=== PATIENT | female | born 1990 | race Hispanic/Latino ===

== ENCOUNTER 2017-05-06 14:52 | Inpatient (IN) | payer OTHER ==
[~2017-05-06] VITALS: Ht 162.6 cm; Wt 93.0 kg
[~2017-05-06 14:52] MED LIST: IRON325 M1 PO; LORTAB 7.5 PO; MEDDOSEPAK PO; PRENATA8 PO
[2017-05-07] VITALS (11 sets, daily range): BP systolic 92–120; BP diastolic 42–73
[2017-05-07 05:53] LABS: HEMATOCRIT 36.7 % (37.0-47.0); HEMOGLOBIN 12.8 g/dl (12.0-16.0); IMMATURE GRANULOCYTES 0.8 % (0.0-1.0); MEAN CELL VOLUME 97.3 fL CALC (80.0-100.0); MEAN CORPUSCULAR HGB CONC 34.9 g/L CALC (32.0-36.0); NEUT# 6.9 thou/uL (2.00-7.15); RED BLOOD COUNT 3.77 mill/uL (4.20-5.60); RED CELL DISTRI WIDTH 14.6 % (11.5-15.5)
[2017-05-07 06:00] LABS: ALBUMIN 3.5 g/dL (3.2-5.0); ALKALINE PHOSPHATASE 148 u/l (38-126); ANION GAP 13 (6-22 (CALC)); BILIRUBIN, TOTAL 0.7 mg/dL (0.0-1.4); BUN 10 mg/dL (7-17); BUN/CREATININE RATIO 25 (12-20 (CALC)); CALCIUM 9.2 mg/dL (8.4-10.2); CARBON DIOXIDE 20 mmol/l (22-30); CHLORIDE 110 mmol/l (95-108); CREATININE 0.4 mg/dL (0.5-1.0); GFR > 60 ML/MIN (>=60 (CALC)); GFR FOR AFR.AMER. > 60 ML/MIN (>=60 (CALC)); GLUCOSE 71 mg/dL (65-105); POTASSIUM 4.1 mmol/l (3.5-5.1); SGOT/AST 20 u/l (14-36); SGPT/ALT 31 u/l (9-52); SODIUM 139 mmol/l (137-146); TOTAL PROTEIN 6.3 g/dL (6.3-8.2)
[2017-05-08 01:32] VITALS: BP 100/52
[2017-05-08 05:45] VITALS: BP 105/55
[2017-05-08 06:07] LABS: HEMATOCRIT 33.1 % (37.0-47.0); HEMOGLOBIN 11.1 g/dl (12.0-16.0); IMMATURE GRANULOCYTES 0.4 % (0.0-1.0); MEAN CELL VOLUME 100.9 fL CALC (80.0-100.0); MEAN CORPUSCULAR HGB 33.8 pG CALC (26.0-32.0); MEAN CORPUSCULAR HGB CONC 33.5 g/L CALC (32.0-36.0); NEUT# 8.78 thou/uL (2.00-7.15); RED BLOOD COUNT 3.28 mill/uL (4.20-5.60); RED CELL DISTRI WIDTH 15.1 % (11.5-15.5)
[2017-05-08 12:55] VITALS: BP 104/47
[2017-05-08 21:00] VITALS: BP 110/60
[2017-05-09 05:55] VITALS: BP 129/62
[2017-05-09] MEDS ORDERED: IBUPROFEN600 MG PO (12:19)
[2017-05-09] MEDS ORDERED: LORTAB 7.57.5 MG PO (12:20)
[2017-05-09 13:00] VITALS: BP 119/54
== END 2017-05-09 15:30 | disposition home or self-care (01) | DRG 766 ==
LOC: OB 05-07 04:53
PROVIDERS: ADMIT Obstetrics & Gynecology; ATTEND Obstetrics & Gynecology
PROC: 10D00Z1 Extraction of Products of Conception, Low, Open Approach (ICD-10-PCS; principal; 2017-05-07)
DX: O34.211 Maternal care for low transverse scar from previous cesarean delivery (principal); J45.909 Unspecified asthma, uncomplicated; O99.52 Diseases of the respiratory system complicating childbirth; N73.6 Female pelvic peritoneal adhesions (postinfective); O99.89 Other specified diseases and conditions complicating pregnancy, childbirth and the puerperium; N85.8 Other specified noninflammatory disorders of uterus; O73.0 Retained placenta without hemorrhage; Z3A.40 40 weeks gestation of pregnancy; Z37.0 Single live birth
CPT/HCPCS: J2270

== ENCOUNTER 2017-05-26 17:21 | Emergency (ER) | payer OTHER ==
[~2017-05-26] VITALS: Ht 162.6 cm; Wt 89.9 kg
[~2017-05-26 17:21] MED LIST changes: +IBUPROFEN600 MG PO; +LORTAB 7.57.5 MG PO
[2017-05-26] MEDS ORDERED: CLINDAMYCIN300 M1 PO (17:40)
[2017-05-26] MEDS ORDERED: ULTRAM50 M1 PO (18:20)
[2017-05-26] MEDS ORDERED: BACTRIM DS1 TAB PO (18:20)
[2017-05-26 18:36] VITALS: BP 130/79
== END 2017-05-26 18:40 | disposition home or self-care (01) | DRG 776 ==
LOC: ED 17:21
PROC: 0H97XZX Drainage of Abdomen Skin, External Approach, Diagnostic (ICD-10-PCS; principal; 2017-05-26)
DX: O86.0 Infection of obstetric surgical wound (principal); B96.89 Other specified bacterial agents as the cause of diseases classified elsewhere

== ENCOUNTER 2017-05-31 17:30 | Inpatient (IN) | payer OTHER ==
[~2017-05-31] VITALS: Ht 162.6 cm; Wt 85.7 kg
[~2017-05-31 17:30] MED LIST changes: +BACTRIM DS1 TAB PO; +CLINDAMYCIN300 M1 PO; +ULTRAM50 M1 PO
--- NOTE | 2017-05-31 17:40 | NUR ---
PT.ON FLOOR AMBULATORY, APPEARS TO BE IN GOOD CONDITION. PT.IS BEING SETTLED INTO ROOM AT THIS TIME, ORIENTED TO ROOM, CALL SYSTEM, LIGHTS, TV AND POC. PT.IS BEING SERVED SUPPER TRAY AT THIS TIME
[2017-05-31 17:45] VITALS: BP 112/54
[2017-05-31 18:56] LABS: HEMATOCRIT 40.2 % (37.0-47.0); HEMOGLOBIN 13.4 g/dl (12.0-16.0); IMMATURE GRANULOCYTES 0.4 % (0.0-1.0); MEAN CELL VOLUME 101.3 fL CALC (80.0-100.0); MEAN CORPUSCULAR HGB 33.8 pG CALC (26.0-32.0); MEAN CORPUSCULAR HGB CONC 33.3 g/L CALC (32.0-36.0); NEUT# 4.61 thou/uL (2.00-7.15); RED BLOOD COUNT 3.97 mill/uL (4.20-5.60)
--- NOTE | 2017-05-31 19:00 | NUR ---
RECEIVED CHANGE OF SHIFT REPORT FROM SY MARSHALL. PATIENT LYING IN BED AND APPEARS NOT TO BE IN ANY APPARENT ACUTE DISTRESS NOTED. WILL CONTINUE TO MONITOR.
[2017-05-31 19:08] LABS: ALBUMIN 4.3 g/dL (3.2-5.0); ALKALINE PHOSPHATASE 63 u/l (38-126); ANION GAP 17 (6-22 (CALC)); BILIRUBIN, TOTAL 0.5 mg/dL (0.0-1.4); BUN 13 mg/dL (7-17); BUN/CREATININE RATIO 19 (12-20 (CALC)); CALCIUM 9.2 mg/dL (8.4-10.2); CARBON DIOXIDE 23 mmol/l (22-30); CHLORIDE 106 mmol/l (95-108); CREATININE 0.7 mg/dL (0.5-1.0); GFR > 60 ML/MIN (>=60 (CALC)); GFR FOR AFR.AMER. > 60 ML/MIN (>=60 (CALC)); GLUCOSE 96 mg/dL (65-105); POTASSIUM 4.3 mmol/l (3.5-5.1); SGOT/AST 36 u/l (14-36); SGPT/ALT 57 u/l (9-52); SODIUM 142 mmol/l (137-146); TOTAL PROTEIN 7.1 g/dL (6.3-8.2)
[2017-05-31 19:55] VITALS: BP 89/56
--- NOTE | 2017-06-01 | NUR ---
PATIENT RESTING QUIETLY IN BED WITH EYES CLOSED. NO APPARENT ACUTE DISTRESS NOTED.
[2017-06-01 00:54] LABS: URINE BILIRUBIN - DIPSTICK NEGATIVE (NEGATIVE); URINE BLOOD DIPSTICK SMALL (NEGATIVE); URINE CLARITY CLEAR; URINE COLOR YELLOW; URINE GLUCOSE - DIPSTICK NEGATIVE (NEGATIVE); URINE KETONE NEGATIVE (NEGATIVE); URINE NITRITE - DIPSTICK NEGATIVE (Negative); URINE PROTEIN - DIPSTICK NEGATIVE (NEG-TRACE); URINE UROBILINOGEN - DIPSTICK 0.2 E.U./dL (0.2)
[2017-06-01 01:23] LABS: URINE LEUK ESTERASE SMALL (NEGATIVE)
[2017-06-01 02:40] LABS: URINE BACTERIA RARE hpf
--- NOTE | 2017-06-01 04:00 | NUR ---
NO APPARENT ACUTE CHANGES NOTED IN PATIENT'S CONDITION.
[2017-06-01 05:00] VITALS: BP 88/59
--- NOTE | 2017-06-01 07:00 | NUR ---
REPORT RECIEVED FROM SY GOLDBERG. PT APPEARS TO BE SLEEPING ON ENTRY. NO SIGNS OF DISTRESS. RESP EVEN AND UNLABORED. SAFETY PRECAUTIONS IN PLACE. CALL LIGHT WITHIN REACH. WILL CONTINUE TO MONITOR HOURLY.
[2017-06-01 08:28] VITALS: BP 96/49
--- NOTE | 2017-06-01 13:15 | NUR ---
Drug Selected: Vancomycin Age: 26 years Weight: 86 kg Height: 64 in Gender: Female SCR: 0.7 mg/dl Calculated Values: Dosing weight: 67.22 kg IBW: 54.70 kg CRCL (ml/min): 105.2 Final Report: Give Vancomycin 1000 mg q8 hrs NEXT TROUGH WILL BE 06/02/17 @ 0730AM
--- NOTE | 2017-06-01 15:20 | NUR ---
PT RESTING IN SUPINE POSITON IN BED WATCHING TV WITH FAMILY AT BEDSIDE. PT IV SIGHT APPEARS HEALTHY. NO COMPLAINTS OF PAIN FROM PT AT THE MOMENT. CALL LIGHT WITHIN REACH.
[2017-06-01 16:15] VITALS: BP 119/64
--- NOTE | 2017-06-01 18:43 | NUR ---
PT SITTING AT SIDE OF BED. NO COMPLAINTS OF PAIN AT THE MOMENT. IV SIGHT APPEARS HEALTHY. SAFETY PRECAUTIONS REINFORCED. CALL LIGHT WITHIN REACH.
[2017-06-01 19:30] VITALS: BP 95/58
--- NOTE | 2017-06-01 20:03 | NUR ---
DR DOUGLAS IN PT ROOM EXPLAINING PLAN OF CARE, RECOMMENDED TO REMOVE GAUZE AND TEGADERM FROM INCISION SITE AND COVER WITH ABD PAD INSTEAD, WILL CONTINUE TO REASSESS. NO DISTRESS NOTED ON PT, DENIES PAIN AT THIS TIME, CALL HEALY AT REACH.
--- NOTE | 2017-06-01 21:10 | NUR ---
CHANGED DRESSING WITH X2 4X4 GAUZE AND ABD PAD ON TOP SECURED WITH UNDERWEAR, PT STATES "TAPE IRRITATES MY SKIN," AND DR. DOUGLAS RECOMMENDED NOT TO PUT TAPE ON SKIN. MEDICATED FOR PAIN WITH LORTAB FOR ABD PAIN, WILL CONTINUE TO REASSESS, AT BEDSIDE, VSS, WILL CONTINUE TO MONITOR. PT IS TALKACTIVE, NO FACIAL GRIMACE OR GUARDING NOTED.
--- NOTE | 2017-06-01 23:24 | NUR ---
LORENAREN INFUSING AT THIS TIME, PT TALKING ON THE PHONE, AND WATCHING TV, AT BEDSIDE, DENIES NEEDS, ABD DRESSING CDI AT THIS TIME, DENIES PAIN, WILL CONTINUE TO REASSESS, CALL HEALY AT REACH.
--- NOTE | 2017-06-01 23:59 | NUR ---
BARRY PASTRANA, EDUCATED PT ABOUT SIDE EFFECTS, INSTRUCETED TO CALL IF ANY PAIN/DISCOMFORT OR REDNESS, VOICES UNDERSTANDING, IV IS INTACT, AT BEDSIDE.
--- NOTE | 2017-06-02 03:45 | NUR ---
PT DENIES PAIN, SOME BACON COLOR DRAINAGED NOTED, CHANGED DRESSING, PLACED A X2 4X4 GAUZE AND A ABD PAD, PT REFUSES TAPE ON SKIN, STATES "IT IRRITATES MY SKIN." PT IS MAINTAINING DRESSING IN PLACE WITH OWN UNDERWEAR. WILL CONTINUE TO REASSESS, IN ROOM. IV FLUIDS INFUSING WITHOUT DIFFICULTY, IV SITE IS FREE OF REDNESS OR EDEMA, DENIES PAIN, RESP ARE EVEN AND UNLABORED, CALL HEALY IS WITHIN REACH.
[2017-06-02 05:05] VITALS: BP 89/63
--- NOTE | 2017-06-02 07:00 | NUR ---
REPORT RECIEVED FROM SY HERNANDEZ. PT APPEARS TO BE ASLEEP. FAMILY SLEEPING AT BEDSIDE. NO SIGNS OF DISTRESS. RESP EVEN AND UNLABORED. SAFETY PRECAUTIONS IN PLACE. CALL LIGHT WITHIN REACH.
[2017-06-02 08:20] VITALS: BP 114/64
--- NOTE | 2017-06-02 12:00 | NUR ---
PT RESTING IN BED IN SUPINE POSITON. ABD DRESSING CDI. IV SIGHT APPEARS HEALTHY. NO COMPLAINTS OF PAIN AT THIS TIME. CALL LIGHT WITHIN REACH.
--- NOTE | 2017-06-02 12:40 | NUR ---
VANCOMYCIN TROUGH RESULT TROUGH LEVEL ON 06/02/17 IS 12 CONTINUE VANCOMYCIN 1GRAM Q8H NEXT TROUGH WILL BE 06/04/17 @0730 AM
[2017-06-02 16:34] VITALS: BP 98/52
[2017-06-02 18:00] VITALS: BP 110/65
--- NOTE | 2017-06-02 19:00 | NUR ---
RECEIVED CHANGE OF SHIFT REPORT FROM NATAN RON. PATIENT SITTING UP IN CHAIR AND REPORTS UNRELIEVED PAIN. NO APPARENT ACUTE DISTRESS NOTED. WILL CONTINUE TO MONITOR.
--- NOTE | 2017-06-02 19:06 | NUR ---
REPORT GIVEN TO SY GOLDBERG. PT SHOWS NO SIGNS OF DISTRESS, STABLE AT THIS TIME. CALL LIGHT WITHIN REACH.
--- NOTE | 2017-06-03 | NUR ---
PATIENT RESTING QUIETLY AT THIS TIME. NO APPARENT ACUTE DISTRESS NOTED.
[2017-06-03 00:06] VITALS: BP 88/50
--- NOTE | 2017-06-03 04:00 | NUR ---
NO APPARENT ACUTE CHANGES NOTED IN PATIENT'S CONDITION.
[2017-06-03 08:20] VITALS: BP 116/60
--- NOTE | 2017-06-03 08:20 | NUR ---
ASSESSMENT IS COMPLETED: IV SITE IS FREE FROM REDNESS OR EDEMA. CONTINUE TO OBSERVE AND MONITOR.
--- NOTE | 2017-06-03 10:15 | NUR ---
PT WENT TO CT SCAN AND RETURNED AT 1119
--- NOTE | 2017-06-03 11:05 | NUR ---
PT'S IV SITE WAS SORE WHEN BEING FLUSHED. NEW IV SITE OBTAINED IN WITH #22 X2 PT TOLERATED WELL.
--- NOTE | 2017-06-03 12:05 | NUR ---
PT IS AMBULATING IN THE ROOM. WITH SPOUSE AND IN THE TAYLOR. IV SITE WAS CHANGED IN CT SCAN. TOOK 2 ATTEMPTS. #22 IN RH. CONTINUE TO OBSERVVE AND MONITOR. FAMILY IN THE ROOM. DR. DOUGLAS CAME BACK TO SEE PT.
--- NOTE | 2017-06-03 12:19 | NUR ---
SPOKE WITH DR. DOUGLAS RE: BLOOD CULTURES , NOT BEING OBTAINED. STATED " TOO LATE NOW PT HAS BEEN ON TOO MANY ABTS.
[2017-06-03 16:00] VITALS: BP 113/60
--- NOTE | 2017-06-03 16:05 | NUR ---
PT IS SITTING IN THE CHAIR. IV SITE IS FREE FROM REDNESS OR EDEMA CONTINUE TO OSBERE AND MONITOR.
[2017-06-03 18:00] VITALS: BP 119/59
--- NOTE | 2017-06-03 19:30 | NUR ---
PATIENT UP AND ABOUT IN THE ROOM. PATIENT IS AWAKE ALERT AND ORIENTED WITH NO COMPLAINTS AT THIS TIME. FAMILY AT BEDSIDE VISITING. PATIENT WITH IV SITE TO RIGHT HAND-SITE APPEARS HEALTHY AT THIS TIME WITH LR INFUSING AT 100CC/HR. PATIENT STATES THAT SHE DID HAVE BM'S TDAY. DENIES ANY DIFFICULTY WITH URINATION. ABD DRESS IS CDI AT THIS TIME. SAFETY PRECAUTION REINFORCED. CALL LIGHT IN REACH. WILL CONT TO MONITOR.
--- NOTE | 2017-06-03 23:00 | NUR ---
PATIENT SHOWERED AND GAUGE DRESSING WAS CHANGED. SMALL AMT OF BEIGE/GREENISH COLORED DRAINAGE NOTED ON OLD DRESSINGS. INCISION LINE IS INTACT WITH SMALL OPEN AREA WITH DRAINAGE-SURROUNDING AREA IS HARD TO TOUCH. 4X4 AND ABD PAD PLACED IN UNDERGARMENTS. IV ANTIBIOTICS GIVEN ORDRED. INSTRUCTED NPO AFTER MIDNIGHT FOR OR IN AM FOR I&D OF WOUND. VERBALIZES UNDERSTANDING. AT BEDSIDE AND WILL BE STAYING THE NIGHT. COT PROVIDED. CALL LIGHT IN REACH. WILL CONT TO MONITOR.
[2017-06-04] VITALS (12 sets, daily range): BP systolic 83–112; BP diastolic 40–70
--- NOTE | 2017-06-04 04:00 | NUR ---
APPEARS SLEEPING AT THIS TIME WITH IVF PATENT AND INFUSING RIGHT HAND AT 100CC/HR. REMAINS NPO FOR OR THIS AM. SLEEPING AT BEDSIDE ON COT PROVIDED. CALL LIGHT IN REACH. WILL CONT TO MONITOR.
[2017-06-04 05:04] LABS: HEMATOCRIT 37.4 % (37.0-47.0); HEMOGLOBIN 12.3 g/dl (12.0-16.0); IMMATURE GRANULOCYTES 0.4 % (0.0-1.0); MEAN CELL VOLUME 101.1 fL CALC (80.0-100.0); MEAN CORPUSCULAR HGB 33.2 pG CALC (26.0-32.0); MEAN CORPUSCULAR HGB CONC 32.9 g/L CALC (32.0-36.0); NEUT# 2.67 thou/uL (2.00-7.15); RED BLOOD COUNT 3.7 mill/uL (4.20-5.60); RED CELL DISTRI WIDTH 12.5 % (11.5-15.5)
[2017-06-04 05:15] LABS: ANION GAP 13 (6-22 (CALC)); BUN 12 mg/dL (7-17); BUN/CREATININE RATIO 22 (12-20 (CALC)); CALCIUM 9.2 mg/dL (8.4-10.2); CARBON DIOXIDE 26 mmol/l (22-30); CHLORIDE 106 mmol/l (95-108); CREATININE 0.6 mg/dL (0.5-1.0); GFR > 60 ML/MIN (>=60 (CALC)); GFR FOR AFR.AMER. > 60 ML/MIN (>=60 (CALC)); GLUCOSE 82 mg/dL (65-105); POTASSIUM 4.6 mmol/l (3.5-5.1); SODIUM 142 mmol/l (137-146)
--- NOTE | 2017-06-04 07:40 | NUR ---
ASSESSMENT IS COMPLETED: IV SITE IS FREE FROM REDNESS OR EDEMA. NO DISTRESS NOTED. WAITING ON OR TEAM. FAMILY IN THE ROOM. CONTINUE TO OSBERVE AND MONITOR.
--- NOTE | 2017-06-04 08:55 | NUR ---
PT WAS GIVEN A SPONGE AND BETADINE TO CLEAN THE AREA . TOLERATED WELL. CONTINUE TO OBSERVE AND MONITOR.
--- NOTE | 2017-06-04 09:15 | NUR ---
PT TRANSPORTED TO OR VIA [facility] ACCOMPANIED BY STAFF
--- NOTE | 2017-06-04 10:00 | NUR ---
IV SITE CLEAR NO REDNESS OR EDEMA. GOING TO OR.
--- NOTE | 2017-06-04 10:27 | NUR ---
PT UNABLE TO HAVE 9AM MEDS DUE TO GOING TO OR
--- NOTE | 2017-06-04 13:00 | NUR ---
IV SITE WAS CHANGED IN OR TO LFA WITH #20 CONTINUE TO OBSERVE AND MONITOR.
--- NOTE | 2017-06-04 13:15 | NUR ---
PT IS AMBULATING TO THE BED NO DISTRESS NOTED. IV SITE IS FREE FROM REDNESS OR EDEMA
--- NOTE | 2017-06-04 17:43 | NUR ---
PT HAS BEEN IN THE CHAIR AND THEN BACK IN BED VISITING WITH FAMILY. NO DISTRESS NOTED. IV SITE IS FREE FROM REDNESS OR EDEMA.
--- NOTE | 2017-06-04 19:40 | NUR ---
PATIENT SITTING ON THE SIDE OF THE BED-EMOTIONAL AND HAS BEEN CRYING. PATIENT ASKING FOR PAIN MEDS AND MEDICATED WITH DEMEROL 25MG IVP ORDERED FOR 8/10 PAIN SCALE. ABD DRESSING IS OFF-SOHEILA DRAIN IS INTACT AND DRAINING MODERATE AMT OF SEROSANGUINOUS DRAINAGE. POST-OP WOUND CLEANSED WITH SALINE ON GAUGE PAD. NEW DRESSING APPLIED USING 4X4 GAUZE PADS AND ABD. SECURED WITH PAPER TAPE. INSTRUCTED PATIENT TO LEAVE DRESSING IN PLACE AND TO CALL IF ANY DRAINAGE NOTED. VERBALIZED UNDERSTANDING. PATIENT WITH IV SITE TO LEFT AC-SITE APPEARS HEALTHY AT THIS TIME. FINISHING LR THAT IS HANGING. PATIENT STATES THAT SHEIS VOIDING WITHOUT ANY DIFFICULTY BUT IS HAVING LOOSE BM'S. REASSURANCE OFFERED-MISSING CHILDREN AT HOME. SAFETY PRECAUTIONS REINFORCED CALL LIGHT IN REACH. WILL CONT TO MONITOR.
--- NOTE | 2017-06-04 22:00 | NUR ---
PATIENT APPEARS MORE COMFORTABLE AT THIS TIME- AT BEDSIDE. ABD DRESSING IS CDI AT THIS TIME. CALL LIGHT IN REACH. WILL CONT TO MONITOR.
--- NOTE | 2017-06-05 00:08 | NUR ---
PATIENT RESTING IN BED AT THIS TIME WITH EYES CLOSED AND RESTING ON COT PROVIDED. IV VANCO HUNG ORDERED. ABD DRESSING REMAINS CDI AT THIS TIME. CALL LIGHT IN REACH. WILL CONT TO MONITOR.
--- NOTE | 2017-06-05 04:38 | NUR ---
SHAZIA BP 94/56. PATIENT APPEARS SLEEPY AT THIS TIME. ABD DRESSING IS CDI AT THIS TIME. CALL LIGHT IN REACH. WILL CONT TO MONITOR.
[2017-06-05 05:14] VITALS: BP 94/56
[2017-06-05 07:25] VITALS: BP 110/60
--- NOTE | 2017-06-05 07:28 | NUR ---
PATIENT RESTING IN BED HOLDING HER ABD, GRIMISING IN PAIN-STATES 7/10 ON PAIN SCALE. BP-110/60. MEDICATED WITH DEMEROL 25MG IVP FOR PAIN. CALL LIGHT IN REACH. WILL CONT TO MONITOR.
[2017-06-05] MEDS ORDERED: METRONIDAZOL500 MG PO (08:11)
[2017-06-05] MEDS ORDERED: CIPRO XR500 M2 PO (08:11)
[2017-06-05] MEDS ORDERED: LORTAB 7.57.5 MG PO (08:11)
[2017-06-05 08:15] VITALS: BP 97/64
--- NOTE | 2017-06-05 10:28 | NUR ---
IN TO SEE PT., CHANGED DRESSING TO INCISIONAL WOUND, SOHEILA DRAIN AT SITE DRAINING MODERATE AMOUNT OF SEROSANGUINEOUS FLUID, POC AND DISCHARGE DISCUSSED. BEFORE LEAVING THE ROOM, PT.ASKED IF SHE COULD HAVE SOMETHING MORE FOR PAIN/WILL PROVIDE.
--- NOTE | 2017-06-05 10:45 | NUR ---
PT.MEDICATED FOR PAIN, I WALKED INTO ROOM, PT.WAS SITTING IN RECLINER UPRIGHT IN TEARS W/ AT SIDE. PT.IS UPSET REGARDING PAIN, BEING AWAY FROM HER BABIES, HAVING TO MISS MORE WORK, HAVING TO BE ON ANTIBIOTICS, CONCERNED ABOUT WHAT PAIN MEDICATIONS SHE WILL GO HOME WITH, WE DISCUSSED POC MORE AT LENGTH AND MOSTLY I LISTENED TO HER CONCERNS. I WILL DISCUSS HER CONCERNS WITH MAURA ARCHULETA.
[2017-06-05] MEDS ORDERED: PERCOCET1 TA2 PO (12:20)
--- NOTE | 2017-06-05 12:35 | NUR ---
IV REMOVED/SITE APPEARS HEALTHY. PT.OFF THE FLOOR DISCHARGED IN GOOD CONDITION, VIA WC ACCOMPANIED BY AND STAFF
== END 2017-06-05 12:36 | disposition home or self-care (01) | DRG 769 ==
LOC: MS2 17:30
PROVIDERS: Nurse Practitioner Family; ADMIT Obstetrics & Gynecology; ATTEND Obstetrics & Gynecology
PROC: 0J9C0ZZ Drainage of Pelvic Region Subcutaneous Tissue and Fascia, Open Approach (ICD-10-PCS; principal; 2017-06-04)
DX: O86.0 Infection of obstetric surgical wound (principal); B95.2 Enterococcus as the cause of diseases classified elsewhere
CPT/HCPCS: Q9967

== ENCOUNTER 2017-06-19 05:00 | Emergency (ER) | payer OTHER ==
[~2017-06-19] VITALS: Ht 162.6 cm; Wt 90.8 kg
[~2017-06-19 05:00] MED LIST changes: +CIPRO XR500 M2 PO; +METRONIDAZOL500 MG PO; +PERCOCET1 TA2 PO
[2017-06-19 05:49] LABS: HEMATOCRIT 41.5 % (37.0-47.0); HEMOGLOBIN 14.2 g/dl (12.0-16.0); IMMATURE GRANULOCYTES 0.4 % (0.0-1.0); MEAN CELL VOLUME 98.8 fL CALC (80.0-100.0); MEAN CORPUSCULAR HGB 33.8 pG CALC (26.0-32.0); MEAN CORPUSCULAR HGB CONC 34.2 g/L CALC (32.0-36.0); NEUT# 7.65 thou/uL (2.00-7.15); RED BLOOD COUNT 4.2 mill/uL (4.20-5.60); RED CELL DISTRI WIDTH 12.4 % (11.5-15.5)
[2017-06-19 06:12] LABS: ALBUMIN 4.9 g/dL (3.2-5.0); ALKALINE PHOSPHATASE 67 u/l (38-126); AMYLASE 34 u/l (30-110); BILIRUBIN, TOTAL 0.8 mg/dL (0.0-1.4); BUN 23 mg/dL (7-17); BUN/CREATININE RATIO 32 (12-20 (CALC)); CALCIUM 9.9 mg/dL (8.4-10.2); CARBON DIOXIDE 25 mmol/l (22-30); CHLORIDE 105 mmol/l (95-108); CREATININE 0.7 mg/dL (0.5-1.0); GFR > 60 ML/MIN (>=60 (CALC)); GFR FOR AFR.AMER. > 60 ML/MIN (>=60 (CALC)); GLUCOSE 102 mg/dL (65-105); LIPASE 33 u/l (23-300); SGOT/AST 87 u/l (14-36); SGPT/ALT 100 u/l (9-52); SODIUM 145 mmol/l (137-146); TOTAL PROTEIN 7.5 g/dL (6.3-8.2)
[2017-06-19 06:14] LABS: ANION GAP 19 (6-22 (CALC)); POTASSIUM 4.1 mmol/l (3.5-5.1)
[2017-06-19] MEDS ORDERED: METRONIDAZOL500 MG PO (08:50)
[2017-06-19] MEDS ORDERED: CIPROFLOXACN500 MG PO (08:50)
[2017-06-19 08:56] VITALS: BP 95/59
== END 2017-06-19 09:07 | disposition home or self-care (01) | DRG 445 ==
LOC: ED 05:00
PROVIDERS: Emergency Medicine
DX: K80.20 Calculus of gallbladder without cholecystitis without obstruction (principal); L02.211 Cutaneous abscess of abdominal wall
CPT/HCPCS: Q9967

== ENCOUNTER 2017-07-20 21:18 | Emergency (ER) | payer OTHER ==
[~2017-07-20] VITALS: Ht 162.6 cm; Wt 85.4 kg
[~2017-07-20 21:18] MED LIST changes: +CIPROFLOXACN500 MG PO
[2017-07-20 22:13] LABS: HEMATOCRIT 41.3 % (37.0-47.0); HEMOGLOBIN 13.8 g/dl (12.0-16.0); IMMATURE GRANULOCYTES 0.4 % (0.0-1.0); MEAN CELL VOLUME 100.5 fL CALC (80.0-100.0); MEAN CORPUSCULAR HGB 33.6 pG CALC (26.0-32.0); MEAN CORPUSCULAR HGB CONC 33.4 g/L CALC (32.0-36.0); NEUT# 6.72 thou/uL (2.00-7.15); RED BLOOD COUNT 4.11 mill/uL (4.20-5.60); RED CELL DISTRI WIDTH 12.8 % (11.5-15.5)
[2017-07-20 22:30] LABS: ALBUMIN 4.8 g/dL (3.2-5.0); ALKALINE PHOSPHATASE 72 u/l (38-126); AMYLASE 41 u/l (30-110); ANION GAP 16 (6-22 (CALC)); BUN 17 mg/dL (7-17); BUN/CREATININE RATIO 22 (12-20 (CALC)); CALCIUM 9.3 mg/dL (8.4-10.2); CARBON DIOXIDE 24 mmol/l (22-30); CHLORIDE 107 mmol/l (95-108); CREATININE 0.8 mg/dL (0.5-1.0); GFR > 60 ML/MIN (>=60 (CALC)); GFR FOR AFR.AMER. > 60 ML/MIN (>=60 (CALC)); GLUCOSE 103 mg/dL (65-105); LIPASE 22 u/l (23-300); SGOT/AST 133 u/l (14-36); SGPT/ALT 145 u/l (9-52); SODIUM 144 mmol/l (137-146); TOTAL PROTEIN 7.8 g/dL (6.3-8.2)
[2017-07-20 22:38] LABS: URINE BILIRUBIN - DIPSTICK NEGATIVE (NEGATIVE); URINE BLOOD DIPSTICK LARGE (NEGATIVE); URINE COLOR YELLOW; URINE GLUCOSE - DIPSTICK NEGATIVE (NEGATIVE); URINE KETONE NEGATIVE (NEGATIVE); URINE NITRITE - DIPSTICK NEGATIVE (Negative); URINE PH 5.5 (4.5-8.0); URINE PROTEIN - DIPSTICK NEGATIVE (NEG-TRACE); URINE UROBILINOGEN - DIPSTICK 0.2 E.U./dL (0.2)
[2017-07-20 22:41] LABS: URINE CLARITY TURBID; URINE LEUK ESTERASE SMALL (NEGATIVE)
[2017-07-20 22:43] LABS: URINE RBC 25-50 RBC/hpf (0-5)
[2017-07-20 22:44] LABS: URINE SQUAMOUS EPITHELIAL CELL FEW EPI/hpf (0-FEW)
[2017-07-20] MEDS ORDERED: PERCOCET 5/325M1 TAB PO (22:54)
[2017-07-20] MEDS ORDERED: ZOFRAN4 MG/TAB PO (22:54)
[2017-07-20 23:18] VITALS: BP 112/61
== END 2017-07-20 23:18 | disposition home or self-care (01) | DRG 445 ==
LOC: ED 21:18
PROVIDERS: Emergency Medicine
DX: K80.50 Calculus of bile duct without cholangitis or cholecystitis without obstruction (principal); K62.5 Hemorrhage of anus and rectum

== ENCOUNTER → 2018-09-27 | Outpatient (REF) | payer OTHER ==
[~2018-09-27] MED LIST changes: +PERCOCET 5/325M1 TAB PO; +ZOFRAN4 MG/TAB PO
[2018-09-27 19:29] LABS: HEMATOCRIT 45.8 % (37.0-47.0); HEMOGLOBIN 15.4 g/dl (12.0-16.0); IMMATURE GRANULOCYTES 0.3 % (0.0-5.0); MEAN CELL VOLUME 100.7 fL CALC (80.0-100.0); MEAN CORPUSCULAR HGB 33.8 pG CALC (26.0-32.0); MEAN CORPUSCULAR HGB CONC 33.6 g/L CALC (32.0-36.0); NEUT# 4.77 thou/uL (2.00-7.15); RED BLOOD COUNT 4.55 mill/uL (4.20-5.60); RED CELL DISTRI WIDTH 12.3 % (11.5-15.5)
[2018-09-27 19:52] LABS: ALBUMIN 5.6 g/dL (3.2-5.0); ALKALINE PHOSPHATASE 89 u/l (38-126); ANION GAP 18 (6-22 (CALC)); BILIRUBIN, TOTAL 2.3 mg/dL (0.0-1.4); BUN 9 mg/dL (7-17); BUN/CREATININE RATIO 15 (12-20 (CALC)); CALCULATED LDLCHOLESTEROL 101 mg/dL (62-129 (CALC)); CARBON DIOXIDE 24 mmol/l (22-30); CHLORIDE 102 mmol/l (95-108); CHOLESTEROL HDL RATIO 2.6 (<4.4 (CALC)); CREATININE 0.6 mg/dL (0.5-1.0); GFR > 60 ML/MIN (>=60 (CALC)); GFR FOR AFR.AMER. > 60 ML/MIN (>=60 (CALC)); HDL CHOLESTEROL 70 mg/dL (>=40); POTASSIUM 4.1 mmol/l (3.5-5.1); SODIUM 140 mmol/l (137-146); TOTAL CHOLESTEROL 180 mg/dl (0-199); TOTAL PROTEIN 8.7 g/dL (6.3-8.2); TOTAL TRIGLYCERIDES 43 mg/dl (30-149); VLDL CHOLESTROL 9 mg/dl (2-29 (CALC))
[2018-09-27 20:10] LABS: SGOT/AST 30 u/l (14-36)
[2018-09-27 20:22] LABS: TSH, 3RD GENERATION 1.59 uIU/mL (0.47 - 4.68)
== END | disposition home or self-care (01) | DRG 951 ==
LOC: LAB 18:47
DX: Z01.419 Encounter for gynecological examination (general) (routine) without abnormal findings (principal); N64.2 Atrophy of breast

== ENCOUNTER → 2018-10-09 | Outpatient (REF) ==
[2018-10-09 19:47] LABS: CHOLESTEROL HDL RATIO 2.3 (<4.4 (CALC))
== END | disposition home or self-care (01) | DRG 951 ==
LOC: LAB 18:52
PROVIDERS: ATTEND Family Medicine
DX: Z02.6 Encounter for examination for insurance purposes (principal)